=== PATIENT | female | born 1980 | race Two or more races ===

== ENCOUNTER 2019-04-01 17:36 | Emergency (ER) | payer SELFPAY ==
[~2019-04-01] VITALS: Ht 160 cm; Wt 63.0 kg
[2019-04-01] MEDS ORDERED: UNOBMED (17:43)
[2019-04-01 18:00] VITALS: BP 118/58
--- NOTE | 2019-04-01 18:17 | NUR ---
ED Nurse Note: pt arrives in [facility] custody for medical clearance with c/o bilat wrist pain. states she doesnt want to talk about why wrists pain. takes po meds well.
--- NOTE | 2019-04-01 18:47 | NUR ---
ED Nurse Note: pt given dc aci and referrals to ortho clinic. d/c into [facility] custody with medical clearance release pt is calm and a/ox3 upon dc
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
== END 2019-04-01 18:48 ==
LOC: EMR 18:13
DX: M25.531 Pain in right wrist (principal); M25.532 Pain in left wrist; I10 Essential (primary) hypertension; F32.9 Major depressive disorder, single episode, unspecified; F41.9 Anxiety disorder, unspecified
CPT/HCPCS: 99282